=== PATIENT | female | born 1950 | race Caucasian/White ===

== ENCOUNTER → 2016-10-20 | Outpatient (CLI) | payer OTHER ==
--- NOTE | 2016-10-21 07:55 | MAMMOGRAPHY REPORT ---
BILATERAL DIGITAL SCREENING MAMMOGRAM WITH CAD: 10/20/2016 CLINICAL HISTORY: Routine screening. Patient has no complaints. TECHNIQUE: Bilateral CC and MLO views were obtained. Current study was also evaluated with a Compute r Aided Detection (CAD) system. COMPARISON: Comparison is made to exams dated: 09/23/2015 mammogram, 09/19/2014 mammogram, 08/22/2013 ammogram - [facility], and 08/03/2006. BREAST COMPOSITION: There are scattered areas of fibroglandular density in both breasts. FINDINGS: There is a focal asymmetry in the 6:00 middle one third of the right breast, for which add itional spot compression tomosynthesis views and possibly ultrasound are recommended. There are stable benign-appearing round and rim calcifications in the right upper inner quadrant post eriorly. No other suspicious mass, architectural distortion or cluster of microcalcifications is seen . IMPRESSION: ACR BI-RADS CATEGORY 0: INCOMPLETE EVALUATION: NEED ADDITIONAL IMAGING EVALUATION The focal asymmetry in the right 6:00 breast needs additional evaluation. The patient will be called to schedule an appointment. Approximately 10% of breast cancers are not detected with mammography. A negative mammographic report should not delay biopsy if a clinically suggestive mass is present. Kathy Dwyer M.D. ay/:10/20/2016 15:26:00 Master Rigger: Kera STEINER(Werner)(Prasad)(BD), [facility] letter sent: Addl Imaging 0 BI-RADS Code: ACR BI-RADS Category 0: Incomplete Evaluation: Need Additional Imaging Evaluation
== END | disposition home or self-care (01) ==
LOC: C.MAMM 14:36
PROVIDERS: ATTEND Family Medicine
DX: Z12.31 Encounter for screening mammogram for malignant neoplasm of breast (principal); R92.8 Other abnormal and inconclusive findings on diagnostic imaging of breast

== ENCOUNTER → 2017-01-19 | Outpatient (CLI) | payer OTHER ==
--- NOTE | 2017-01-20 14:34 | MAMMOGRAPHY REPORT ---
UNILATERAL RIGHT DIGITAL DIAGNOSTIC MAMMOGRAM TOMOSYNTHESIS AND TARGETED RIGHT ULTRASOUND: 01/19/2017 CLINICAL HISTORY: 66-year-old woman called back from screening mammography for a focal asymmetry in t he 6:00 right breast. Family history of breast cancer = mother. TECHNIQUE: Spot compression right CC and MLO 2-D and tomosynthesis images and ultimately full-field right cc and MLO tomosynthesis images after placement of skin BB markers. COMPARISON: Comparison is made to exams dated: 10/20/2016 mammogram, 09/23/2015 mammogram, 09/19/2014 m ammogram, and 08/22/2013 mammogram - [facility]. BREAST COMPOSITION: There are scattered areas of fibroglandular density in the right breast. FINDINGS: The spot compression views of the right breast demonstrate a circumscribed oval 8 x 5 mm ma ss in the 6:00 middle one third of the breast. No associated architectural distortion or calcificati on. Further evaluation with ultrasound was performed. Targeted ultrasound was performed in the 6:00 right breast. In the 5:00 to 6:00 axis, 2 cm from the nipple, there is a lobulated predominantly anechoic cyst with thin internal nonvascular septations, m easuring 7.6 x 4.9 x 6.7 mm. A second oval circumscribed parallel anechoic benign simple cyst with p osterior acoustic enhancement is identified in the 6:30 right breast, 2 cm from the nipple, measuring 8.0 x 4.4 x 5.8 mm. No suspicious solid mass is identified. Given that only one mass was definitely seen on the spot compression views, BB markers were placed ov erlying the sonographic cysts and repeat full field right CC and MLO tomosynthesis images were obtain ed. The BBs aligned with 2 visible circumscribed masses, best seen on the MLO tomosynthesis images ( slice 25/79). The superior oval circumscribed mass corresponds to the original asymmetry, likely cor relating with the cyst with internal septations, and the inferior, slightly larger circumscribed 11 x 9 mm mass correlates with the anechoic simple cyst on ultrasound. IMPRESSION: ACR BI-RADS CATEGORY 2: BENIGN, TARGETED ULTRASOUND ACR BI-RADS CATEGORY 2: BENIGN There are 2 persistent well-circumscribed oval masses in the 6:00 middle one third of the right breas t mammographically, that correlate with benign cysts identified on ultrasound. There is no mammograp hic or targeted sonographic evidence of malignancy in the right breast. Recommend routine screening mammography in one year (patient is due in September 2017). These results and recommendations were discus sed with patient at the time of the exam. Approximately 10% of breast cancers are not detected with mammography. A negative mammographic report should not delay biopsy if a clinically suggestive mass is present. Kathy Dwyer M.D. ay/:01/19/2017 15:25:32 Professor Computer Science: Anna STEINER(Werner)(Prasad), [facility] letter sent: Normal 1/2 BI-RADS Code: ACR BI-RADS Category 2: Benign Ultrasound BI-RADS: ACR BI-RADS Category 2: Benign
== END | disposition home or self-care (01) ==
LOC: C.MAMM 13:49
PROVIDERS: ATTEND Family Medicine
DX: N64.89 Other specified disorders of breast (principal); N63.0 Unspecified lump in unspecified breast

== ENCOUNTER → 2017-03-30 | Outpatient (CLI) | payer OTHER ==
[2017-03-30 10:46] LABS: HEMATOCRIT 41.7 % (37-47); HEMOGLOBIN 13.8 g/dL (12.0-16.0)
[2017-03-30 10:56] LABS: HEMOGLOBIN A1C 6.2 % (4.5-5.6)
[2017-03-30 11:02] LABS: ALBUMIN 3.8 gm/dl (3.4-5.0); ALT/SGPT 23 U/L (12-78); AST/SGOT 9 U/L (15-37); BLOOD UREA NITROGEN 13 mg/dl (7-18); CARBON DIOXIDE 29 mmol/L (21-32); CREATININE 0.75 mg/dl (0.60-1.20); GLUCOSE 106 mg/dl (70-99); POTASSIUM 3.8 mmol/L (3.5-5.1); SODIUM 137 mmol/L (136-145)
[2017-03-30 11:06] LABS: T3 FREE 2.42 pg/ml (2.30-4.20)
[2017-03-30 11:11] LABS: ALKALINE PHOSPHATASE 101 U/L (45-117); CHOLESTEROL 158 mg/dl (0-200); LDL CHOLESTEROL CALCULATED 74 mg/dl
--- NOTE | 2017-04-05 12:20 | CODING QUERY MEDICAL NECESSITY ---
CQSUPPORTING DIAGNOSIS NEEDED A supporting diagnosis is required for the test/procedure performed on this patient in order for us to be reimbursed by the patient's insurance. Please provide a supporting diagnosis for the following test/procedure listed below next to the test name along with your signature. *If there is no additional diagnosis for this patient that would support the following test/procedure please document that below next to the test/procedure. Test(s)/Procedure(s) that require a supporting diagnosis: DOS 03/30/17 VITAMIN D TEST Provider Signature: Date: Thank you Inés Witt [facility] Information Management Once completed, please kindly fax back to [phone] For questions please call [phone]
== END | disposition home or self-care (01) ==
LOC: C.LAB1850 09:38
PROVIDERS: ATTEND Internal Medicine Endocrinology, Diabetes & Metabolism
DX: R73.03 Prediabetes (principal); E55.9 Vitamin D deficiency, unspecified

== ENCOUNTER → 2017-07-27 | Outpatient (CLI) | payer OTHER | END | disposition home or self-care (01) | LOC: C.LABBFT 10:10 | PROVIDERS: ATTEND Internal Medicine Endocrinology, Diabetes & Metabolism | DX: E05.00 Thyrotoxicosis with diffuse goiter without thyrotoxic crisis or storm (principal) ==

== ENCOUNTER → 2017-10-21 | Outpatient (CLI) | payer OTHER ==
--- NOTE | 2017-10-21 15:40 | MAMMOGRAPHY REPORT ---
BILATERAL DIGITAL SCREENING MAMMOGRAM TOMOSYNTHESIS WITH CAD: 10/21/2017 CLINICAL HISTORY: Routine screening. Patient has no complaints. TECHNIQUE: The study was acquired using full field digital technology and interpreted from soft copy. Breast tomosynthesis in addition to standard 2D mammography was performed. Current study was also ev aluated with a Computer Aided Detection (CAD) system. COMPARISON: Comparison is made to exams dated: 01/19/2017 mammogram, 10/20/2016 mammogram, 09/23/2015 mammogram, 09/19/2014 mammogram, 08/22/2013 mammogram - [facility], and 08/03/2006. BREAST COMPOSITION: There are scattered areas of fibroglandular density in both breasts. FINDINGS: No suspicious masses, calcifications, or areas of architectural distortion are noted in either breast . There has been no significant interval change compared to prior exams. Mildly fluctuating nodulari ty is again noted bilaterally, likely representing cysts. Scattered bilateral benign-appearing calci fications are not significantly changed. IMPRESSION: ACR BI-RADS CATEGORY 2: BENIGN There is no mammographic evidence of malignancy. A 1 year screening mammogram is recommended.( [id number]) The patient will receive written notification of the results. Some breast cancers are not detected with mammography. A negative mammographic report should not carlota y biopsy if a clinically suggestive mass is present. Ana Cristina Martinez M.D. ah/:10/21/2017 13:25:26 Falsework Builder: RT Soniya(R)(M), [facility] letter sent: Normal 1/2 BI-RADS Code: ACR BI-RADS Category 2: Benign
== END | disposition home or self-care (01) ==
LOC: C.MAMM 10:28
PROVIDERS: ATTEND Family Medicine
DX: Z12.31 Encounter for screening mammogram for malignant neoplasm of breast (principal)